=== PATIENT | female | born 1990 | race Two or more races ===

== ENCOUNTER 2017-11-05 14:07 | Emergency (ER) | payer OTHER ==
[2017-11-05 14:18] VITALS: BP 120/67; PULSE 110; TEMP 102; BMI 26.6
[2017-11-05] MEDS ORDERED: ACETAMINOPHEN 325 MG TABLET (FP) PO ONE (14:19)
--- NOTE | 2017-11-05 14:19 | PDOC ---
Rapid Medical Evaluation Time Seen by Provider: 11/05/17 14:15 Medical Evaluation: Allergies Allergy/AdvReac Type Severity Reaction Status Date / Time pollen extracts Allergy Itching Verified 07/15/16 20:21 cats Allergy Intermediate Itching Uncoded 07/05/16 14:08 11/05/17 14:15 I have performed a brief in-person evaluation of this patient. The patient presents with a chief complaint of: Fever with MCCULLOUGH, body aches x 3 days Pertinent physical exam findings:Fever of 102 and tachy to 110 I have ordered the following:tylenol 650mg The patient will proceed to the ED for further evaluation. 11/05/17 14:18
--- NOTE | 2017-11-05 16:04 | PDOC ---
History of Present Illness - General Chief Complaint: Cold Symptoms Stated Complaint: FEVER Time Seen by Provider: 11/05/17 14:15 History Source: Patient Exam Limitations: No Limitations - History of Present Illness Initial Comments: 11/05/17 15:54 Patient is a [27-year-old female, no significant medical history currently on no medication presents for evaluation of fever, productive cough, generalized pain, photophobia. Symptoms started 2 days ago. Denies any diarrhea or constipation, vomited once. No hematemesis. Denies any urinary symptoms. Was given Tylenol in triage. ] Past Medical History: [Denies]. Allergies: No known allergies Medications: None Family History: Non-contributory Social History: Denies smoking, alcohol use, or IVDU Review of Systems GENERAL/CONSTITUTIONAL: [Fever and chills. No weakness. No weight change.] HEAD, EYES, EARS, NOSE AND THROAT: [No change in vision. No ear pain or discharge. No sore throat. ] CARDIOVASCULAR: [No chest pain or shortness of breath.] RESPIRATORY: [Productive cough , no wheezing, or hemoptysis. Chest pain with coughing. ] GASTROINTESTINAL: [No nausea, vomiting, diarrhea or constipation. No rectal bleeding.] GENITOURINARY: [No dysuria, frequency, or change in urination.] MUSCULOSKELETAL: [No joint or muscle swelling or pain. No neck or back pain.] SKIN : [No rash or easy bruising.] NEUROLOGIC: [No headache, vertigo, loss of consciousness, or loss of sensation.] ENDOCRINE: [No increased thirst. No abnormal weight change.] HEMATOLOGIC/LYMPHATIC: [No anemia, easy bleeding, or history of blood clots.] ALLERGIC/IMMUNOLOGIC: [No hives or skin allergy. No latex allergy.] Physical Exam: GENERAL: [The patient is awake, alert, and fully oriented, in no acute distress. ] HEAD: [Normal with no signs of trauma.] EYES: [Pupils equal, round and reactive to light, extraocular movements intact, sclera anicteric, conjunctiva clear.] ENT: [Ears normal, nares patent, oropharynx clear without exudates. Moist mucous membranes. No uvula deviation] NECK: [Normal range of motion, supple without lymphadenopathy, JVD, or masses.] LUNGS: Patient with rhonchi bilaterally, expiratory wheezes cleared with cough HEART: [Regular rate and rhythm, normal S1 and S2 without murmur, rub or gallop. ] ABDOMEN: [Soft, nontender, normoactive bowel sounds. No guarding, no rebound. No masses. No bruising or abrasions] MUSCULOSKELETAL: [Normal range of motion, no edema. No clubbing or cyanosis. No cords, erythema, or tenderness. No CVA Tenderness with fist palpation.] NEUROLOGICAL: [Cranial nerves II through XII grossly intact. Normal speech, normal gait.] SKIN: [Warm, Dry, normal turgor, no rashes or lesions noted.] 11/05/17 17:10 Past History - Past Medical History Allergies/Adverse Reactions: Allergies Allergy/AdvReac Type Severity Reaction Status Date / Time pollen extracts Allergy Itching Verified 11/05/17 14:16 cats Allergy Intermediate Itching Uncoded 11/05/17 14:16 Home Medications: Ambulatory Orders Azithromycin [Zithromax 250mg Tablets -] 250 mg PO UTDICT #6 tab 11/05/17 Oseltamivir Phosphate [Tamiflu -] 75 mg PO BID #10 capsule 11/05/17 Asthma: No Cancer: No Cardiac Disorders: No COPD: No Diabetes: No HTN: No Seizures: No Thyroid Disease: No - Reproductive History (#): 2 Para: 0 - Suicide/Smoking/Psychosocial Hx Smoking Status: No Smoking History: Never smoked Have you smoked in the past 12 months: No Number of Cigarettes Smoked Daily: 0 Information on smoking cessation initiated: No Hx Alcohol Use: No Drug/Substance Use Hx: No Substance Use Type: None Hx Substance Use Treatment: No *Physical Exam - Vital Signs Last Vital Signs Temp Pulse Resp BP Pulse Ox 102.0 F H 110 H 18 120/67 100 11/05/17 14:16 11/05/17 14:16 11/05/17 14:16 11/05/17 14:16 11/05/17 14:16 ED Treatment Course - Medications Given in the ED: ED Medications Discontinued Medications Generic Name Dose Route Start Last Admin Trade Name Freq PRN Reason Stop Dose Admin Acetaminophen 650 mg 11/05/17 14:19 11/05/17 14:20 Tylenol - PO 11/05/17 14:20 650 mg ONCE ONE Administration Medical Decision Making - Medical Decision Making 11/05/17 16:04 A/P: Patient here for evaluation of fever, generalized weakness, cough, productive patient with clinical signs of influenza type illness and bronchitis. I will discharge patient on Tamiflu and azithromycin with follow- up with PMD in 3 days if symptoms still persist. I discussed the physical exam findings, ancillary test results and final diagnoses with the patient. I answered all of the patient's questions. The patient was satisfied with the care received and felt comfortable with the discharge plan and treatment plan. The patient will call to arrange follow-up and will return to the Emergency Department with any new, persistent or worsening symptoms. *DC/Admit/Observation/Transfer Diagnosis at time of Disposition: Upper respiratory infection Qualifiers: URI type: unspecified URI Qualified Code(s): J06.9 - Acute upper respiratory infection, unspecified - Discharge Dispostion Disposition: HOME Condition at time of disposition: Good Admit: No - Prescriptions Prescriptions: Azithromycin [Zithromax 250mg Tablets -] 250 mg PO UTDICT #6 tab Oseltamivir Phosphate [Tamiflu -] 75 mg PO BID #10 capsule - Referrals Referrals: Dunia Fowler MD [Primary Care Provider] - - Patient Instructions Printed Discharge Instructions: Acute Bronchitis Additional Instructions: Increase fluids to prevent dehydration Tamiflu and antibiotics as ordered until completed Motrin for fever greater than 101.0 Please followup with primary care DrMomo in 3 days if symptoms persist Return to emergency department any increased cough, fever, inability to drink or other concerns - Post Discharge Activity Forms/Work/School Notes: Back to Work
== END 2017-11-05 16:25 | disposition home or self-care (01) ==
LOC: JERFT 14:07
DX: J06.9 Acute upper respiratory infection, unspecified (principal)
CPT/HCPCS: 99281-25

== ENCOUNTER 2019-11-28 10:56 | Emergency (ER) | payer OTHER ==
[2019-11-28 11:12] VITALS: BP 128/64; PULSE 94; TEMP 99.3; BMI 25.8
[2019-11-28] MEDS ORDERED: IBUPROFEN 600 MG TABLET (FP) PO ONE ×2 (11:51→12:03)
--- NOTE | 2019-11-28 11:58 | PDOC ---
History of Present Illness - General Chief Complaint: Cold Symptoms Stated Complaint: FEVER Time Seen by Provider: 11/28/19 11:21 History Source: Patient - History of Present Illness Initial Comments: 11/28/19 11:51 29-year-old female complaining of fever for the last 3 nights, nasal congestion , cough, throat pain. Denies sick contacts, denies flu vaccine this season No past medical history Past History - Past Medical History Allergies/Adverse Reactions: Allergies Allergy/AdvReac Type Severity Reaction Status Date / Time pollen extracts Allergy Itching Verified 11/05/17 14:16 cats Allergy Intermediate Itching Uncoded 11/05/17 14:16 Home Medications: Ambulatory Orders Azithromycin [Zithromax 250mg Tablets -] 250 mg PO UTDICT #6 tab 11/05/17 Oseltamivir Phosphate [Tamiflu -] 75 mg PO BID #10 capsule 11/05/17 Fluticasone Prop 0.05% Nasal [Flonase -] 1 - 2 spray NS BID #1 spray.pump Ibuprofen 600 mg PO QID PRN #20 tablet 11/28/19 Asthma: No Cancer: No Cardiac Disorders: No COPD: No Diabetes: No HTN: No Seizures: No Thyroid Disease: No - Reproductive History (#): 2 Para: 0 - Psycho Social/Smoking Cessation Hx Smoking Status: No Smoking History: Never smoked Have you smoked in the past 12 months: No Number of Cigarettes Smoked Daily: 0 Information on smoking cessation initiated: No Hx Alcohol Use: No Drug/Substance Use Hx: No Substance Use Type: None Hx Substance Use Treatment: No Review of Systems - Review of Systems Able to Perform ROS?: Yes Is the patient limited Marshallese proficient: No Constitutional: Yes: Fever. No: Symptoms Reported, See HPI, Chills, Diaphoresis , Loss of Appetite, Malaise, Night Sweats, Weakness, Weight Stable, Unintentional Wgt. Loss, Unexplained wgt Loss, Other HEENTM: Yes: Nose Congestion, Throat Pain Respiratory: Yes: Cough *Physical Exam - Vital Signs Last Vital Signs Temp Pulse Resp BP Pulse Ox 99.3 F 94 H 18 128/64 99 11/28/19 11:10 11/28/19 11:10 11/28/19 11:10 11/28/19 11:10 11/28/19 11:10 - Physical Exam General Appearance: Yes: Appropriately Dressed HEENT: positive: Pharyngeal Erythema Respiratory/Chest: positive: Lungs Clear, Normal Breath Sounds Gastrointestinal/Abdominal: positive: Normal Bowel Sounds, Soft. negative: Tender Extremity: positive: Normal Capillary Refill, Normal Inspection, Normal Range of Motion Integumentary: positive: Normal Color, Dry, Warm Neurologic: positive: Fully Oriented, Alert ED Progress Note - Progress Note Progress Note: 11/28/19 15:34 A: URI with cough P: rapid strep : negative supportive care likely flu. Discharge - Discharge Information Problems reviewed: Yes Clinical Impression/Diagnosis: URI (upper respiratory infection) Qualifiers: URI type: unspecified viral URI Qualified Code(s): J06.9 - Acute upper respiratory infection, unspecified Condition: Stable Disposition: HOME - Additional Discharge Information Prescriptions: Fluticasone Prop 0.05% Nasal [Flonase -] 1 - 2 spray NS BID #1 spray.pump Ibuprofen 600 mg PO QID PRN #20 tablet PRN Reason: Pain - Follow up/Referral Referrals: Dunia Fowler MD [Primary Care Provider] - - Patient Discharge Instructions Patient Printed Discharge Instructions: DI for Common Cold Additional Instructions: drink plenty of fluids Gargle with warm salty water Drink warm liquids Take ibuprofen every 6 hours as needed for pain or fever Follow with your doctor as soon as possible - Post Discharge Activity Work/Back to School Note: Back to Work
== END 2019-11-28 12:40 | disposition home or self-care (01) ==
LOC: JERFT 10:56
DX: J06.9 Acute upper respiratory infection, unspecified (principal); B97.89 Other viral agents as the cause of diseases classified elsewhere
CPT/HCPCS: 87070; 87880; 99281-25

== ENCOUNTER 2022-12-08 15:43 | Emergency (ER) | payer OTHER ==
[2022-12-08 16:32] VITALS: BP 107/60; RESP 19; TEMP 97.4
[2022-12-08 17:30] VITALS: PULSE 77; BMI 27.4
== END 2022-12-08 17:45 | disposition home or self-care (01) ==
LOC: JER 15:43
DX: O26.93 Pregnancy related conditions, unspecified, third trimester (principal); M54.50 Low back pain, unspecified; Z3A.30 30 weeks gestation of pregnancy
CPT/HCPCS: 99281-25

== ENCOUNTER 2023-01-31 12:30 | Inpatient (IN) | payer OTHER ==
[2023-01-31] MEDS ORDERED: ACETAMINOPHEN 325 MG TABLET (FP) ONE (13:53)
[2023-01-31] MEDS: ACETAMINOPHEN 325 MG TABLET (FP) PO PRN (13:55)
[2023-01-31 14:33] VITALS: BMI 34.1
[2023-01-31 14:37] LABS: CORD PCO2 39.7 mmHg (30-78); CORD pH 7.297 (7.14-7.44)
[2023-01-31 14:41] LABS: CORD BASE EXCESS -8.2 mmol/L (0-2); CORD HCO3 19.5 mmHg (20-29); CORD PCO2 48.5 mmHg (30-78); CORD pH 7.223 (7.14-7.44)
[2023-01-31] MEDS ORDERED: DEXTROSE 5%-LACTATED RINGERS 1,000 ML IV ONE (15:00)
[2023-01-31] MEDS ORDERED: METHYLERGONOVINE MALEATE 0.2 MG/1 ML AMP IM ONE (15:10)
[2023-01-31] MEDS ORDERED: OXYTOCIN 20 UNITS in 0.9% NS 20 UNIT/1,000 ML INFUS.BAG IV ONE (15:27)
[2023-01-31 15:40] LABS: BASO % 0.4 % (0-2.0); EOS % 0.2 % (0-4.5); HEMATOCRIT 30.3 % (32.4-45.2); HEMOGLOBIN 9.8 GM/dL (10.7-15.3); LYMPH % 8.4 % (8-40); MCH 24.2 pg (25.7-33.7); MCHC 32.5 g/dl (32.0-36.0); MEAN CELL VOLUME 74.5 fl (80-96); MEAN PLT VOLUME 6.2 fl (7.5-11.1); PLATELET COUNT 321 10^3/uL (134-434); RBC 4.06 M/mm3 (3.60-5.2); RDW 16.6 % (11.6-15.6); WHITE BLOOD COUNT 15.7 K/mm3 (4.0-10.0)
[2023-01-31 15:47] LABS: PROTHROMBIN TIME (PATIENT) 11.6 SEC (9.7-13.0)
[2023-01-31 15:50] LABS: ACTIVATED PTT 30.9 SECONDS (25.2-36.5)
[2023-01-31 16:26] LABS: CREATININE 0.7 mg/dL (0.55-1.3)
[2023-01-31] MEDS ORDERED: METHYLERGONOVINE MALEATE 0.2 MG/1 ML AMP IM PRN (17:05)
[2023-01-31] MEDS ORDERED: oxyCODONE HCL 5 MG TABLET PO PRN (17:05)
[2023-01-31] MEDS ORDERED: BENZOCAINE 28 GM HEMORRHOIDAL OINTMENT TP PRN (17:05)
[2023-01-31] MEDS ORDERED: WITCH HAZEL 50% (TUCKS) 40 PAD/JAR PAD TP PRN (17:05)
[2023-01-31] MEDS ORDERED: BENZOCAINE 20% 57 GM BOTTLE TP PRN (17:05)
[2023-01-31] MEDS ORDERED: BISACODYL 10 MG SUPP.RECT RC PRN (17:05)
[2023-01-31] MEDS ORDERED: OXYTOCIN 20 UNITS in 0.9% NS 20 UNIT/1,000 ML INFUS.BAG IV SCH (17:15)
[2023-01-31] MEDS: IBUPROFEN 600 MG TABLET (FP) PO PRN (19:57)
[2023-02-01] MEDS: ACETAMINOPHEN 325 MG TABLET (FP) PO PRN (07:45)
[2023-02-01 08:44] LABS: BASO % 0.6 % (0-2.0); EOS % 0.6 % (0-4.5); HEMATOCRIT 25.3 % (32.4-45.2); HEMOGLOBIN 8.4 GM/dL (10.7-15.3); LYMPH % 17.7 % (8-40); MCH 24.5 pg (25.7-33.7); MCHC 33.2 g/dl (32.0-36.0); MEAN PLT VOLUME 6.6 fl (7.5-11.1); MONO % 6.3 % (3.8-10.2); NEUT % 74.8 % (42.8-82.8); PLATELET COUNT 292 10^3/uL (134-434); RBC 3.42 M/mm3 (3.60-5.2); RDW 16.3 % (11.6-15.6); WHITE BLOOD COUNT 11.5 K/mm3 (4.0-10.0)
[2023-02-01] MEDS: IBUPROFEN 600 MG TABLET (FP) PO PRN ×2 (14:13→21:55)
[2023-02-01 21:54] VITALS: TEMP 98.1
[2023-02-01] MEDS ORDERED: SENNOSIDES/DOCUSATE COMBO (SENNA PLUS) TABLET (UD) PO PRN (22:00)
[2023-02-02] MEDS: IBUPROFEN 600 MG TABLET (FP) PO PRN (08:32)
[2023-02-02 10:34] VITALS: BP 130/84; PULSE 84; RESP 16
== END 2023-02-02 12:10 | disposition home or self-care (01) | DRG 560 ==
LOC: JDEL 12:30 → JLDR 12:40 → J3W 15:50
PROVIDERS: ADMIT Obstetrics & Gynecology; ATTEND Obstetrics & Gynecology
PROC: 10E0XZZ Delivery of Products of Conception, External Approach (ICD-10-PCS; principal; 2023-01-31)
PROC: 0W8NXZZ Division of Female Perineum, External Approach (ICD-10-PCS; 2023-01-31)
DX: O70.0 First degree perineal laceration during delivery (principal); E66.9 Obesity, unspecified; O99.214 Obesity complicating childbirth; Z3A.38 38 weeks gestation of pregnancy; Z37.0 Single live birth
CPT/HCPCS: 36415; 36600; 80048; 82803; 85025; 85610; 85730; 86780; 86850; 86900; 86901; C9803-CS; U0003; U0005

== ENCOUNTER 2025-02-16 06:39 | Day surgery (SDC) | payer OTHER ==
[2025-01-28 14:24] VITALS: BMI 30.9
[2025-02-16] MEDS ORDERED: ONDANSETRON 4 MG/2 ML VIAL IVPUSH PRN ×2 (09:04→13:56)
[2025-02-16] MEDS ORDERED: oxyCODONE HCL 5 MG TABLET PO PRN ×2 (09:04→13:56)
[2025-02-16] MEDS ORDERED: LACTATED RINGERS SOLUTION 1,000 ML IV SCH (09:15)
[2025-02-16] MEDS ORDERED: BUPIVACAINE HCL/PF 0.5% (5MG/ML) 10 ML VIAL ONE (10:35)
[2025-02-16] MEDS ORDERED: DEXAMETHASONE SOD PHOSPHATE 4 MG/1 ML VIAL ONE (11:51)
[2025-02-16] MEDS ORDERED: ONDANSETRON 4 MG/2 ML VIAL ONE ×2 (11:51→12:21)
[2025-02-16] MEDS ORDERED: PROPOFOL 20 ML ONE ×2 (11:51→13:11)
[2025-02-16] MEDS ORDERED: LIDOCAINE HCL/PF 2% SDV 5ML VIAL ONE (11:51)
[2025-02-16] MEDS ORDERED: MIDAZOLAM HCL 2 MG/2 ML SINGLE DOSE VIAL ONE (11:52)
[2025-02-16] MEDS ORDERED: ACETAMINOPHEN INJECTION 100 ML ONE (12:00)
[2025-02-16] MEDS ORDERED: ROCURONIUM BROMIDE 50 MG/5 ML SYRINGE ONE (12:05)
[2025-02-16] MEDS ORDERED: HYDROmorphone HCl 2 MG/ML VIAL ONE (12:19)
[2025-02-16] MEDS ORDERED: SUGAMMADEX SODIUM 200 MG/2 ML VIAL ONE (12:21)
[2025-02-16] MEDS ORDERED: KETOROLAC TROMETHAMINE 30 MG/1 ML VIAL ONE (12:21)
[2025-02-16] MEDS: BUPIVACAINE HCL/PF 0.5% (5MG/ML) 10 ML VIAL IJ ONE ×3 (13:05)
[2025-02-16] MEDS ORDERED: IBUPROFEN 600 MG TABLET (FP) PO PRN (13:56)
[2025-02-16] MEDS ORDERED: IBUPROFEN 800 MG/8 ML IJ IVPB PRN (13:56)
[2025-02-16] MEDS ORDERED: ELECTROLYTE-148 SOLN 1,000 ML IV SCH (14:00)
[2025-02-16 14:46] VITALS: RESP 18; TEMP 97.6
[2025-02-16 16:51] VITALS: BP 107/61; PULSE 68
== END 2025-02-16 16:35 | disposition home or self-care (01) ==
LOC: JASU-SURG 06:39
PROVIDERS: ATTEND Obstetrics & Gynecology
PROC: 0UT74ZZ Resection of Bilateral Fallopian Tubes, Percutaneous Endoscopic Approach (ICD-10-PCS; principal; 2025-02-16 11:00)
DX: Z30.2 Encounter for sterilization (principal)
CPT/HCPCS: 81025; 88305-TC; 94760; J0131

== ENCOUNTER 2025-08-24 09:10 | Emergency (ER) | payer OTHER ==
[2025-08-24 09:33] VITALS: BP 117/79; PULSE 69; RESP 18; TEMP 98.1; BMI 30.9
== END 2025-08-24 11:55 | disposition home or self-care (01) ==
LOC: JERFT 09:10
PROC: 2W3SX1Z Immobilization of Right Foot using Splint (ICD-10-PCS; principal; 2025-08-24)
DX: S82.51XA Displaced fracture of medial malleolus of right tibia, initial encounter for closed fracture (principal); W20.8XXA Other cause of strike by thrown, projected or falling object, initial encounter
CPT/HCPCS: 29125; 73610-TC-RT-FY; 73630-TC-RT-FY; 93971-TC-RT; 99284-25